=== PATIENT | male | born 1965 | race Caucasian/White ===

== ENCOUNTER 2018-07-05 15:27 | Outpatient (CLI) | payer MEDICAID, SELFPAY | END 2018-07-05 15:47 | PROVIDERS: PCP Nurse Practitioner Family; Referring Provider Nurse Practitioner Family; Visit Provider Internal Medicine Infectious Disease | DX: B20 Human immunodeficiency virus [HIV] disease (principal); Z79.899 Other long term (current) drug therapy | CPT/HCPCS: 99215 ==

== ENCOUNTER 2018-12-02 13:17 | Outpatient (REF) | payer MEDICAID, SELFPAY ==
[2018-12-02 20:57] LABS: INR 3.2 (0.9-1.1); Prothrombin Time 32.4 sec (9.3-11.0)
== END 2018-12-02 13:37 ==
LOC: NCHCN 13:17
PROVIDERS: PCP Nurse Practitioner Family; Visit Provider Nurse Practitioner Family
DX: Z79.01 Long term (current) use of anticoagulants (principal)
CPT/HCPCS: 85610

== ENCOUNTER 2018-12-09 11:43 | Outpatient (REF) | payer MEDICAID, SELFPAY ==
[2018-12-09 21:14] LABS: INR 2.1 (0.9-1.1)
== END 2018-12-09 12:03 ==
LOC: NCHCN 11:43
PROVIDERS: PCP Nurse Practitioner Family; Visit Provider Nurse Practitioner Family
DX: Z79.01 Long term (current) use of anticoagulants (principal)
CPT/HCPCS: 85610

== ENCOUNTER 2019-01-10 14:15 | Outpatient (CLI) | payer MEDICAID, SELFPAY | END 2019-01-10 14:35 | PROVIDERS: PCP Nurse Practitioner Family; Referring Provider Nurse Practitioner Family; Visit Provider Internal Medicine Infectious Disease | DX: B20 Human immunodeficiency virus [HIV] disease (principal); Z23 Encounter for immunization; Z79.899 Other long term (current) drug therapy | CPT/HCPCS: 90471; 90734; 99215 ==

== ENCOUNTER 2019-01-18 09:41 | Outpatient (REF) | payer MEDICAID, SELFPAY ==
[2019-01-18 22:12] LABS: INR 2.3 (0.9-1.1); Prothrombin Time 23.6 sec (9.3-11.0)
== END 2019-01-18 10:01 ==
LOC: NCHCN 09:41
PROVIDERS: PCP Nurse Practitioner Family; Visit Provider Nurse Practitioner Family
DX: Z79.01 Long term (current) use of anticoagulants (principal); Z86.72 Personal history of thrombophlebitis
CPT/HCPCS: 85610

== ENCOUNTER 2019-06-28 13:51 | Outpatient (REF) | payer MEDICAID, SELFPAY ==
[2019-06-28 22:02] LABS: INR 1.4 (0.9-1.1)
== END 2019-06-28 14:11 ==
LOC: NCHCN 13:51
PROVIDERS: PCP Nurse Practitioner Family; Visit Provider Nurse Practitioner Family
DX: Z79.01 Long term (current) use of anticoagulants (principal); Z86.72 Personal history of thrombophlebitis
CPT/HCPCS: 85610

== ENCOUNTER 2019-07-12 14:16 | Outpatient (REF) | payer MEDICAID, SELFPAY ==
[2019-07-12 21:30] LABS: INR 3.8 (0.9-1.1)
== END 2019-07-12 14:36 ==
LOC: NCHCN 14:16
PROVIDERS: PCP Nurse Practitioner Family; Visit Provider Nurse Practitioner Family
DX: Z79.01 Long term (current) use of anticoagulants (principal); Z86.72 Personal history of thrombophlebitis
CPT/HCPCS: 85610